=== PATIENT | female | born 1950 | race African-American/Black ===

== ENCOUNTER → 2016-12-19 | Outpatient (CLI) | payer OTHER ==
[~2016-12-19] MED LIST: ADULT LOW DOSE81 MG PO; ALLEGRA180 MG PO; ARIMIDEX PO; BIOTIN1000 MCG PO; CALCIUM 600 +1 EAC1 PO; CO Q-10100 MG PO; COD LIVER OIL1 EACH PO; FISH OIL 1,001000 M2 PO; GLUCOSAMINE &1 EACH PO; HYDROCHLOROTHIA25 M1 PO; IRON PO; KLOR-CON 1010 MEQ PO; LEVOTHYROXINE0.05 MG PO; LOPRESSOR PO; LOSARTAN POTAS100 MG PO; MAGOX 400400 MG PO; MULTIVITAMINS; NORCO 5-325 TA1 EACH PO; NORFLEX100 MG PO; NORVASC5 MG PO; PANTOPRAZOLE SO40 M1 PO; PRAVACHOL40 MG PO; TRAMADOL 50 MG50 MG PO; TRETINOIN 0.05%60 GM TP; VITAMIN B COMP1 EACH PO; VITAMIN B-12100 MCG PO; VITAMIN E400 UNIT PO; VITAMINC500 PO; ZINC50 M2 PO; ZYRTEC10 M4 PO
== END ==
LOC: CAT 10:46
DX: R51 Headache (principal)